=== PATIENT | female | born 1965 ===

== ENCOUNTER 2024-03-25 11:42 | Day surgery (SDC) | payer BC, SELFPAY ==
--- NOTE | 2024-03-24 06:36 | W.PM.DSUDISC ---
Date of service: 03/25/24 Discharge Plan Disposition Patient Disposition: Home Condition: Good Discharge Details Reason For Visit: screening colonoscopy Attending Provider: Fred Guerra Primary Care Provider: Unknown,Unknown Home Meds and New Rx's Prescriptions: Continued levothyroxine [Synthroid] 100 mcg tablet 100 mcg PO DAILY Discharge Instructions Instructions: Diverticulosis Additional Instructions: Elizabeth, it was very nice seeing you again today, and I hope you are comfortable during the colonoscopy and the make a quick recovery. Everything went very smoothly. I did not see any signs of tumors or polyps anywhere along the length of the colon. Similarly, did not see any signs of active inflammation such as Crohn's disease or ulcerative colitis. As we talked about beforehand, you do have some evidence of diverticulosis. This could certainly account for some of the symptoms that you have been experiencing. I have attached some basic information here about diverticular disease and approaches to managing it. Generally, I recommend that patients increase her dietary fiber, targeting approximately 20 to 30 g of fiber per day. Most of my patients need to supplement the regular diet with something like Metamucil to meet this. It is also quite important to drink plenty of free water. The main job of the large intestine is to reabsorb water, so staying well-hydrated makes for a more favorable work environment for the large intestine. Should be drinking about 2 to 3 L of free water every day. With an otherwise negative screening colonoscopy, you will be good for 10 years. If you need anything or have any questions in the meantime, please do not hesitate to ask. 1. If tolerated, consume a soft, low fiber diet for 1-2 days. 2[address] Do not drive, drink alcohol, operate machinery, make critical decisions, or do activities that require coordination or balance for 24 hours. 3. Because air was put into your colon during the procedure, expelling air from your rectum (passing gas or farting) is normal. 4. You may not have a bowel movement for 1-3 days because of the colonoscopy prep. This is normal. 5. Go directly to the emergency room if you notice any of the following: Develop chills (warm to touch), or if you have a thermometer and your temperature is above 101 Difficulty breathing or difficultly swallowing Persistent vomiting Severe abdominal pain, other than gas cramps Severe chest pain Black, tarry stools Any bleeding ? exceeding one tablespoon 6. Call your physician if the site where your intravenous was started becomes red, swollen, painful, and warm to touch. 7. Your physician has reviewed your pre-procedure medications. Please continue to take those medications as previously ordered. You will be given specific information/education regarding any changes to your medications before leaving. Stand Alone Forms: Anesthesia Discharge InstSoledad Bravo (DSU) Activity:: Activity as Tolerated Diet:: As Tolerated Discharge Orders Discharge Orders: Discharge Order (Routine); Ordered 03/24/24 Ordered By: Fred Guerra DS: Diagnosis Discharge Diagnosis (1) Encounter for screening colonoscopy: Status: Acute Asessment and Plan: Diverticulosis; otherwise negative screening colonoscopy
--- NOTE | 2024-03-24 06:38 | COLE_ITS ---
Date of service: 03/25/24 Time of Service: 14:07 Colonoscopy Report Date of procedure: 03/25/24 Pre-op diagnosis general: screening colonoscopy Post-op diagnosis procedure note: other (Sigmoid diverticulosis) Procedure: colonoscopy Surgeon: Fred Guerra Anesthesia Type: General:No Airway Estimated blood loss (mL): 0 Pathology: none sent Complications: None Disposition: same day Indications: She is referred for screening colonoscopy, and left lower quadrant abdominal pain. She tells me she has been experiencing pain for approximately 3 to 4 months. She describes it as cramping, and radiating slightly towards the left suprapubic area. It is not associated with her diet. It does not seem to be associated with her stooling habits, although those are little bit inconsistent secondary to changes in her work schedule. She denies any melena, hematochezia, or unintentional weight loss. She denies any family history of colorectal cancers. She does think that her grandmother may have had diverticulitis in the past. Prep: Miralax/Dulcolax Procedure Start Time: 13:43 Procedure End Time: 13:58 Retraction Time: 8 Findings: Sigmoid diverticulosis Procedure Description: After the induction of anesthesia, and with Elizabeth in left lateral decubitus position, I began by performing an external anorectal exam.? Perineum and skin were normal, as was the anal verge.? There was no evidence of external hemorrhoids.? Next, I performed a digital rectal exam.? I did not appreciate any abnormal findings.? Next, I advanced a colonoscope into the rectal vault.? I performed retroflexion.? This appeared normal.? Using insufflation, I then advanced the colonoscope beyond the rectal folds and into the sigmoid colon before advancing towards the cecum.? The quality of the prep was excellent.? The scope was noted to be in the cecum by identification of the ileocecal valve and appendiceal orifice.? I then began withdrawing the colonoscope using repeated irrigation as necessary for full evaluation of the colonic mucosa. There is sigmoid diverticulosis. ?Once the scope was withdrawn to the level of the rectum, great care was taken to examine portions of the rectal folds.? Finally, the scope was withdrawn and the patient was brought to the same-day surgery recovery unit as the anesthetic wore off. ?The findings and instructions were shared with the patient prior to discharge. [place] Bowel Prep [place] Bowel Prep Right Colon: 3 Left Colon: 3 Transverse Colon: 3 Total Score: 9
--- NOTE | 2024-03-24 15:57 | W.ANESPRE ---
General Info Date of Service Date Performed: 03/25/24 Height: 5 ft 4 in Weight: 76.884 kg Body Mass Index (BMI): 29.0 Surgical Procedure: Operation Date: 03/25/24 13:35 Proposed Procedure Side Surgeon p Colonoscopy Fred Guerra MD Meds Allergies and Home Medications Allergies Allergy/AdvReac Type Severity Reaction Status Date / Time No Known Allergies Allergy Verified 03/25/24 12:55 Home Medication ?Medication ?Instructions ?Recorded levothyroxine 100 mcg tablet 100 mcg PO DAILY 02/21/24 (Synthroid) Current Visit Medications: Current Medications Generic Name Dose Route Start Last Admin Trade Name Freq PRN Reason Stop Dose Admin IV Miscellaneous Supplies 1 each 03/25/24 06:00 Iv Access IV 03/25/24 23:59 DIRECTED SILVIA Ondansetron HCl 4 mg 03/24/24 06:40 Ondansetron 4 Mg/2 Ml Vial IVP 04/23/24 06:39 Q4H PRN PRN Nausea / Vomiting Sodium Chloride 0 ml 03/25/24 06:00 Normal Saline Flush 10 Ml Syr IV 03/25/24 23:59 PRN PRN Sodium Chloride 0 ml 03/25/24 06:00 Normal Saline 10 Ml Vial IJ 03/25/24 23:59 DIRECTED PRN Sterile Water 0 ml 03/25/24 06:00 Water,Injection,Sterile 10 Ml Vial IJ 03/25/24 23:59 DIRECTED PRN PFSH Active Problems Active Problems: Problem Status Onset Code Encounter for screening colonoscopy Acute Z12.11 Hypothyroidism Chronic E03.9 Acquired hypothyroidism Acute E03.9 Dysfunction of both eustachian tubes Acute H69.83 Medical History Medical History Prediabetes Rosacea Obesity History of hepatitis (~1979) Surgical History Surgical History Hx of tooth extraction Tobacco Smoking/Tobacco Use Status: Former Tobacco Use Alcohol Alcohol Intake: current Alcohol intake frequency: holidays/special occasions only Substance Use Substance use: Never Substance use type: does not use Vital Signs and Lab Results Vital Signs Most Recent Vital Signs in EMR: Temp Pulse Resp BP Pulse Ox 36.3 C L 83 20 152/94 H 99 03/25/24 12:50 03/25/24 12:50 03/25/24 12:50 03/25/24 12:50 03/25/24 12:50 Lab Results Blood Type / Crossmatch: No Data to Display Complete Blood Count: No Data to Display Complete Metabolic Panel: No Data to Display Liver Function Panel: No Data to Display Coagulation Panel: No Data to Display Cardiac Panel: No Data to Display Arterial Blood Gas: No Data to Display Venous Blood Gas: No Data to Display Pancreas Panel: No Data to Display Thyroid Panel: No Data to Display Infectious Disease: No Data to Display Blood Cultures: No Data to Display Toxicology Panel: No Data to Display Anesthesia Assessment and Plan Anesthesia History Personal History: No History of General Anesthesia Family History: No Family History of Anesthesia Complications Exercise Tolerance Exercise Tolerance: Metabolic Equivalents>4 Cardiac & Pulmonary Exam Cardiac Exam: Normal S1/S2 Heart Sounds and Heart Murmur Present (has had since she was a kid, encoraged to have evaluated prior to other anesthesia events) Pulmonary Exam: Clear Bilateral Breath Sounds Implantable Cardiac Device Does patient have a Pacemaker or an ICD?: No Airway Exam Known Difficult Airway: No Mallampati Class: 2 Mouth Opening: Normal (> 3cm) Thyromental Distance: Less than 3 cm Neck Range of Motion: Limited ROM Neck Circumference: Normal Teeth Condition: Normal Dentition ASA Classification ASA Score: ASA 2 Emergency Case?: No NPO Status NPO Status: NPO Clears >2 hours, Solids >8 hours Anesthesia Plan Resuscitation Status: Full Code Anesthesia Technique: General Anesthesia Airway Planned: Double Lumen Endotracheal Tube Monitors Used: Standard Monitors Preoperative Comments:: 58 yo female for colo. Sig PMHx: murmur (never had an echo, good functional capacity, denies shortness of breath, chest discomfort, or a decrease of her capacity), hypothyroid (on replacement), preDM, former smoker.
[2024-03-25 12:50] VITALS: BP 152/94; PULSE 83; RESP 20; TEMP 36.3; O2SAT 99
[2024-03-25] MEDS: Lactated Ringers 1,000 ML 80 ML IV (13:15)
[2024-03-25 13:19] VITALS: BMI 29.0
[2024-03-25 14:02] VITALS: BP 123/82; PULSE 85; RESP 16; TEMP 36.2; O2SAT 98
--- NOTE | 2024-03-25 14:08 | W.ANESPOSTOP ---
Postoperative Evaluation Date, Time and Location Date Performed: 03/25/24 Time Performed: 14:08 Patient Location: Day Surgery Unit Vital Signs Most Recent Imported Vital Signs: Most Recent Vital Signs Temp Pulse Resp BP Pulse Ox 36.2 C L 85 16 123/82 98 03/25/24 14:02 03/25/24 14:02 03/25/24 14:02 03/25/24 14:02 03/25/24 14:02 Pain Score Most Recent Pain Score: Most Recent Pain Score Pain Level 0 03/25/24 14:02 Assessment Mental Status: Awake (Alert & Oriented to Patient Baseline) Airway and Respiratory Function: Patent airway with normal (patient baseline) respiratory exam Cardiovascular Function: Hemodynamically Stable Hydration Status: Adequately Hydrated Nausea & Vomiting: No Nausea or Vomiting Pain: Pt. Denies Any Pain Peripheral Nerve Block: Patient did not receive a nerve block
[2024-03-25 14:45] VITALS: BP 143/82; PULSE 80; RESP 16; TEMP 36.5; O2SAT 98
== END 2024-03-25 15:07 | disposition home or self-care (01) ==
PROVIDERS: Visit Provider Surgery
PROC: 0DJD8ZZ Inspection of Lower Intestinal Tract, Via Natural or Artificial Opening Endoscopic (ICD-10-PCS; CPT 45378; principal; 2024-03-25 13:30)
DX: Z12.11 Encounter for screening for malignant neoplasm of colon (principal); K57.30 Diverticulosis of large intestine without perforation or abscess without bleeding
CPT/HCPCS: 45378; J2704

== ENCOUNTER 2024-04-01 01:48 | Outpatient (CLI) | payer BC, SELFPAY ==
--- NOTE | 2024-04-01 08:30 | DI.US_ITS ---
APPROVED REPORT EXAM: Comprehensive 2D, Doppler, and color-flow Echocardiogram Patient Location: Out-Patient Printer Slotter Feeder: Man Funk RDCS (AE) Indications: Heart murmur, family history of heart disease Other Information Study Quality: Fair Conclusion Normal left ventricular wall thickness and chamber size. Ejection fraction is 60 to 65%. Wall motio n is normal Normal right ventricular size and function Both atria are normal in size Aortic valve is mildly sclerotic and trileaflet without stenosis or regurgitation There is no additional structural or hemodynamically significant valvular disease Wall motion Left Ventricle The left ventricle is normal size. The left ventricular systolic function is normal. The left ventric ular ejection fraction is within the normal range. There is normal left ventricular wall thickness. T here is normal LV segmental wall motion. There is no ventricular septal defect visualized. LVEF is 60 %. Right Ventricle The right ventricle is normal size. The right ventricular systolic function is normal. Atria The left atrium size is normal. The right atrium size is normal. The interatrial septum is intact wit h no evidence for an atrial septal defect. Aortic Valve The Aortic valve is mildly sclerotic. There is no aortic valvular stenosis. No aortic regurgitation i s present. Mitral Valve The mitral valve is normal in structure. No evidence of mitral valve stenosis. Trace mitral regurgita tion. Tricuspid Valve The tricuspid valve is normal in structure. There is no tricuspid valve stenosis. Trace tricuspid reg urgitation. Unable to assess PA pressure. Pulmonic Valve The pulmonary valve is normal in structure. There is no pulmonic valvular stenosis. There is no pulmo amy valvular regurgitation. Great Vessels The aortic root is normal in size. The ascending aorta is normal in size. Aortic arch is normal in ca liber. IVC is normal in size and collapses >50% with inspiration. Pericardium There is no pericardial effusion. 2D Dimensions IVSD d PLAX 1.08 cm F: 0.6-1.0 Ao Root d 2.40 cm F: 2.7 - 3.3 LVPW d PLAX 1.06 cm F: 0.6 - 1.0 Ao Asc Diam d 2.58 cm F: 2.3 - 3.1 LVID d PLAX 4.18 cm F: 3.8 - 5.2 LVDs 2.77 cm F: 2.2 - 3.5 LV EF Teichholz 62.9 % FS 33.67 % LV EDV (Teich) 77.8 mL LV ESV (Teich) 28.9 mL Stroke Vol Index (Teich) 27.17 M-Mode TAPSE 1.60 cm (M/F) >1.7 Auto EF LV EDV A4C 73.2 mL LV EDV A2C 70.2 mL LV EDV BP 72.7 mL LV ESV A4C 29.4 mL LV ESV A2C 26.2 mL LV ESV BP 27.5 mL LVEF(%) A4C 59.8 % LVEF(%) A2C 62.7 % LVEF(%) BP 62.2 % LV SV A4C 43.8 ml LV SV A2C 44.0 ml LV SV BP 45.2 ml LV CO A4C 2.4 L/min LV CO A2C 2.5 L/min LV CO BP 2.5 L/min HR A4C 54.30 BPM HR A2C 57.33 BPM LV EDV Index (BP) LA Volume LA Length A4C 2.5 cm LA Length A2C 2.4 cm LA Area A4C s 5.40 cm2 LA Area A2C s 5.59 cm2 LA Vol A4C A-L 9.80 mL LA Vol A2C A-L 10.84 mL LA Vol Biplane A-L 10.5 mL LA Vol/BSA A4C A-L LA Vol/BSA A2C A-L LA Vol/BSA BP A-L 5.8 mL/m2 LA Vol A4C MOD 7.3 mL LA Vol A2C MOD 8.4 mL LA Vol BP MOD 7.8 mL RA Volume RA Area A4C 3.4 cm2 RA ESV A4C (A-L) 4.7mL RA Vol/BSA A4C A-L RA Length A4C 2.1 cm RA ESV A4C (MOD) 3.2mL LV Diastology MV E' medial 0.077 (>0.07 m/s) MV E Vmax 0.68 (0.4-1.3 m/s) MV E/E' MED 8.91 (<14) MV A Vmax 0.75 (0.4-1.3 m/s) MV E' lateral 0.113 (>0.1 m/s) E/A Ratio 0.9 MV E/E' LAT 6.03 (<14) MV E' Average 0.095 m/s MV E/E'(average) 7.19 Aortic Valve AoV Vmax 1.21 m/s LVOT Vmax 1.06 m/s AoV Peak Grad 5.9 mmHg LVOT Peak Grad 4.5 mmHg AoV Area (Vmax) 2.01 cm2 LVOT VTI 0.243 m AoV VTI 0.296 m LVOT Mean Grad 2.5 mmHg AoV Mean Roel. 0.82 m/s LVOT SV 56.13 mL AoV Mean Grad 3.1 mmHg LVOT Diam s 1.70 cm AoV Area (VTI) 1.90 cm2 AV Regurg Peak Gr. 5.89 mmHg Velocity Ratio 0.88 Mitral Valve MV DT 278 (160-240 msec) Pulmonary Valve PV Vmax 0.68 (0.5-1.5 m/s) RVOT Vmax 0.55 m/s PV Peak Grad 1.8 mmHg RVOT Peak Gr. 1.2 mmHg PV Mean Roel 0.51 m/s RVOT VTI 0.138 m PV Mean Grad 1.2 mmHg RVOT Mean Gr. 0.7 mmHg
== END 2024-04-01 02:08 ==
PROVIDERS: PCP Family Medicine; Visit Provider Internal Medicine Cardiovascular Disease
DX: I35.8 Other nonrheumatic aortic valve disorders (principal)
CPT/HCPCS: 93306

== ENCOUNTER 2024-04-04 02:15 | Outpatient (CLI) | payer BC, SELFPAY ==
--- NOTE | 2024-04-04 | ETT_ITS ---
APPROVED REPORT Exam: Exercise Treadmill Patient Location: Out-Patient Room/Bed: Stress Nurse: Nita Phillips RN Ordering Provider:BRENDA JOHNSONIN, Contact Number: [phone] BMI: 28.31 Baseline Rhythm: Sinus Bradycardia Indications: Family history of cardiac disease Medical History Medical History: Prediabetes, obesity, hx of hepatitis, hypothyroidism Cardiac Medications: Levothyroxine Allergies: No known drug allergies Cardiac Risk Factors: Family hx, prediabetes, former smoker, obesity Previous Cardiac Procedures: None Pretest Chest Pain Characteristics: None Exercise History: Sedentary Physical Disabilities: None Lung Sounds: Clear to auscultation Heart Sounds: Regular Stress Test Details Test: Exercise stress testing was performed using a Girma protocol. Rest Stress HR Resting HR Supine: 56 bpm Max Heart Rate (APMHR): 160 bpm Resting HR Standin bpm Target HR (85% APMHR): 136 bpm Max HR Achieved: 143 bpm % of APMHR: 89 Recovery HR: 79 bpm HR response to stress: Normal HR response to stress BP Resting BP Supine: 130/83 mmHg Resting BP Standin/78 mmHg Max BP: 174/80 mmHg Recovery BP: 130/78 mmHg BP response to stress: Normal blood pressure response to stress. ECG Resting ECG: Sinus Bradycardia Ectopy: None Stress ECG: Sinus Tachycardia ST Change: No significant ST segment changes noted Arrhythmia: None Recovery ECG: Sinus Rhythm Recovery ST Change: No significant ST segment changes noted Recovery Arrhythmia: None Clinical Reason for Termination: 100% HR Achieved Stress Symptoms: General Fatigue, mild SOB Exercise duration: 06 min50 sec Highest Stage Reached: Stage 3: 3.4 mph at 14% grade. Exercise capacity: 8.32 METs Angina Score: None Toth Treadmill Score: 6.2 Rate Pressure Product: 05555 Stress ECG Conclusion 1. Resting electrocardiogram is normal 2. Patient exercised on the Girma protocol completed workload of 8.32 METS 3. Normal heart rate and blood pressure response to exercise. The patient achieved 89% of maximum pr edicted heart rate for age 4. There was no electrocardiographic evidence of myocardial ischemia 5. There were no significant dysrhythmias Toth Treadmill Score is 6.2 which is Low risk. Stress Test Summary STAGE Time (mins) Speed (mph) Grade (%) HR BP SpO2 SYMPTOMS METS Supine 56 130/82 95% Standing 76 110/78 1 3 1.7 10 121 146/ 72 4.5 2 6 2.5 12 143 168/74 7 3 9 3.4 14 160 10 1 min recovery 143 170/78 98% 3 min recovery 86 174/80 98% 6 min recovery 79 130/78 99%
== END 2024-04-04 02:35 ==
LOC: DI 02:15
PROVIDERS: PCP Family Medicine; Visit Provider Internal Medicine Cardiovascular Disease
DX: I35.0 Nonrheumatic aortic (valve) stenosis (principal); Z82.49 Family history of ischemic heart disease and other diseases of the circulatory system
CPT/HCPCS: 93017